=== PATIENT | male | born 1960 | race Caucasian/White ===

== ENCOUNTER 2025-06-28 13:58 | Outpatient (RCR) | payer MEDICARE, SELFPAY | END 2025-06-28 23:59 | disposition home or self-care (01) | LOC: RPT 13:58 | PROVIDERS: ATTENDING PHYSICIAN Dentist Oral and Maxillofacial Surgery; FAMILY PHYSICIAN Internal Medicine | DX: G24.4 Idiopathic orofacial dystonia (principal); R29.3 Abnormal posture; Z73.6 Limitation of activities due to disability; R68.84 Jaw pain | CPT/HCPCS: 97110; 97112; 97140; 97162 ==

== ENCOUNTER 2025-07-23 15:09 | Outpatient (RCR) | payer MEDICARE, SELFPAY | END 2025-07-23 23:59 | disposition home or self-care (01) | LOC: RPT 15:09 | PROVIDERS: ATTENDING PHYSICIAN Dentist Oral and Maxillofacial Surgery; FAMILY PHYSICIAN Internal Medicine | DX: G24.4 Idiopathic orofacial dystonia (principal); R29.3 Abnormal posture; Z73.6 Limitation of activities due to disability; R68.84 Jaw pain | CPT/HCPCS: 97110; 97140 ==

== ENCOUNTER 2025-08-22 08:32 | Outpatient (RCR) | payer MEDICARE, SELFPAY | END 2025-08-23 09:44 | disposition home or self-care (01) | LOC: RPT 08:32 | PROVIDERS: ATTENDING PHYSICIAN Dentist Oral and Maxillofacial Surgery; FAMILY PHYSICIAN Internal Medicine | DX: G24.4 Idiopathic orofacial dystonia (principal); R68.84 Jaw pain; R29.3 Abnormal posture; Z73.6 Limitation of activities due to disability | CPT/HCPCS: 97110; 97140 ==